=== PATIENT | female | born 1960 | race Caucasian/White ===

== ENCOUNTER → 2018-12-07 | Outpatient (CLI) | payer OTHER ==
[~2018-12-07] MED LIST: ACEBUTCAFT PO; ESTR.1TPBW TOP; IBUPROFEN200 MG PO; Kenalog-40 m40 MG/ML INJ; LAVAP17G PO; Synthroid25 MCG PO; VALACYCLOVIR1000 MG PO
[2018-12-09 15:18] LABS: HPV 16 Negative (Negative); HPV 18 Negative (Negative); HPV OTHER HR TYPES Negative (Negative)
== END ==
LOC: LAB SHORT 17:44 → LAB 17:44
PROVIDERS: Nurse Practitioner Women's Health
DX: Z12.72 Encounter for screening for malignant neoplasm of vagina (principal); Z91.89 Other specified personal risk factors, not elsewhere classified
CPT/HCPCS: 87624; G0123

== ENCOUNTER 2020-04-19 08:25 | Day surgery (SDC) | payer OTHER ==
[~2020-04-19] VITALS: Ht 165.1 cm; Wt 64.0 kg
--- NOTE | 2020-04-19 09:29 | NUR ---
04/19/20 0929 Gwen Thornton S PT VERBALIZES NO PAIN BUT IMPINGEMENT IN HER LEFT SHOULDER RATING A "2-3". PT. ALSO VERBALIZES THAT IT'S HARD TO OPEN HER MOUTH WIDE & INSTRUCTED HER ABOUT THE BITE BLOCK & WOULD TAKE IT OUT SOON POSSIBLE.
--- NOTE | 2020-04-19 11:49 | NUR ---
04/19/20 1149 Gwen Thornton PT. SUCTIONED NEEDED T.O. PROCEDURE. ON UPPER ENDO PT. WITH STRIDOR SOUNDS OFF & ON, JAW THRUST/CHIN LIFT PERFORMED. SATS REMAINED STABLE.
== END 2020-04-19 11:32 | disposition home or self-care (01) ==
LOC: ORSCSDS 08:25
DX: R13.10 Dysphagia, unspecified (principal); K21.9 Gastro-esophageal reflux disease without esophagitis; Z86.010 Personal history of colon polyps; K20.0 Eosinophilic esophagitis; D12.0 Benign neoplasm of cecum; D12.2 Benign neoplasm of ascending colon; K22.2 Esophageal obstruction; K64.1 Second degree hemorrhoids; Z12.11 Encounter for screening for malignant neoplasm of colon; E03.9 Hypothyroidism, unspecified; Z79.899 Other long term (current) drug therapy
CPT/HCPCS: 88305; C1726; J2405; J2704; J7120

== ENCOUNTER → 2023-04-09 | Outpatient (CLI) | payer OTHER ==
[2023-04-09 15:50] LABS: Free Thyroxine 0.94 ng/dL (0.70-1.60)
[2023-04-09 15:52] LABS: Thyroid Stimulating Hormone 1.94 uIU/mL (0.360-4.800)
[2023-04-11 16:40] LABS: TRIIODOTHYRONINE,TOTAL T3 TTL 73 ng/dL (80-200)
== END ==
LOC: LAB 13:56 → LAB SHORT 13:56
PROVIDERS: Internal Medicine
DX: E03.9 Hypothyroidism, unspecified (principal)
CPT/HCPCS: 84439; 84443; 84480

== ENCOUNTER 2024-05-26 10:56 | Day surgery (SDC) | payer MEDICARE, OTHER ==
[~2024-05-26] VITALS: Ht 165.1 cm; Wt 63.2 kg
[~2024-05-26 10:56] MED LIST changes: +ALLEGRA ALLERGY60 MG PO; -ESTR.1TPBW TOP; +Lactated Ringer's 1,000 ML IV ONE; +VIVELLE-DOT1 EA30; +propofoL 50 ML IV ONE
[2024-05-26] MEDS ORDERED: Lactated Ringer's 1,000 ML IV ONE (11:40)
[2024-05-26 13:24] VITALS: BP 106/61
== END 2024-05-26 13:20 | disposition home or self-care (01) ==
LOC: ORSCSDS 10:56
PROVIDERS: Specialist
PROC: 0DBK8ZX Excision of Ascending Colon, Via Natural or Artificial Opening Endoscopic, Diagnostic (ICD-10-PCS; principal; 2024-05-26 12:15)
PROC: 0D758ZZ Dilation of Esophagus, Via Natural or Artificial Opening Endoscopic (ICD-10-PCS; 2024-05-26 12:15)
PROC: 0DB58ZX Excision of Esophagus, Via Natural or Artificial Opening Endoscopic, Diagnostic (ICD-10-PCS; 2024-05-26 12:15)
DX: K20.0 Eosinophilic esophagitis (principal); Z12.11 Encounter for screening for malignant neoplasm of colon; Z86.0100 Personal history of colon polyps, unspecified; D12.2 Benign neoplasm of ascending colon; K22.2 Esophageal obstruction; K44.9 Diaphragmatic hernia without obstruction or gangrene; K64.8 Other hemorrhoids; Z79.899 Other long term (current) drug therapy
CPT/HCPCS: 88305; C1726; J2704; J7120

== ENCOUNTER → 2024-06-10 | Outpatient (CLI) | payer MEDICARE, OTHER ==
[~2024-06-10] MED LIST changes: -Lactated Ringer's 1,000 ML IV ONE; -propofoL 50 ML IV ONE
[2024-06-10 16:00] LABS: Hematocrit 45.5 % (33.0-51.0); Hemoglobin 14.9 g/dL (11.5-16.0); Mean Corpuscular HGB 30.1 pg (26.0-34.0); Mean Corpuscular HGB Conc 32.7 g/dL (31.5-36.5); Mean Corpuscular Volume 92 fL (80-100); Platelet Count 234 K/mm3 (150-400); RDW Standard Deviation 44.1 fL (35.1-46.3); Red Blood Cell Count 4.95 M/mm3 (3.80-5.20); White Blood Cell Count 4.75 K/mm3 (4.00-11.30)
[2024-06-10 17:06] LABS: Alanine Aminotransfer (ALT/SGP 53 U/L (12-78); Albumin, Blood 4.2 g/dL (3.4-5.0); Albumin/Globulin Ratio 1.4 (0.8-1.8); Alk Phos 64 U/L (50-136); Anion Gap 9 mmol/L (3-11); Aspartate Aminotrans (AST/SGOT 29 U/L (12-37); Bilirubin, Total 1.1 mg/dL (0.1-1.0); Blood Urea Nitrogen 8 mg/dL (8-24); Bun/Creatinine Ratio 12.4 (12.0-20.0); CHOL/HDL RATIO 3.1; CO2, Blood 28 mmol/L (21-32); Calcium, Blood 9.1 mg/dL (8.5-10.1); Chloride, Blood 106 mmol/L (98-108); Cholesterol 272 mg/dL (50-200); Creatinine, Blood 0.65 mg/dL (0.40-1.00); Free Thyroxine 1.01 ng/dL (0.70-1.60); Globulin, Blood 2.9 g/dL (2.2-4.0); Glomerular Filtration Rate 98 (60-); Glucose, Blood 98 mg/dL (70-99); HDL Cholesterol 89 mg/dL (>39); LDL/HDL RATIO 1.8; Low Density Lipoprotein Chol 160 mg/dL (0-110); Potassium, Blood 3.8 mmol/L (3.5-5.5); Sodium, Blood 139 mmol/L (136-145); Total Protein, Blood 7.1 g/dL (6.4-8.2); Triglycerides 117 mg/dL (30-160); Triiodothyronine, Free 2.84 pg/mL (2.18-3.98); Very Low Density Lipoprot Chol 23 mg/dL (6-32)
== END | disposition home or self-care (01) ==
LOC: LAB 10:05 → LAB SHORT 10:05
PROVIDERS: Internal Medicine
DX: Z00.00 Encounter for general adult medical examination without abnormal findings (principal); Z13.6 Encounter for screening for cardiovascular disorders; E03.9 Hypothyroidism, unspecified
CPT/HCPCS: 80053; 80061; 84439; 84443; 84481; 85027

== ENCOUNTER 2024-09-14 08:26 | Day surgery (SDC) | payer MEDICARE, OTHER ==
[~2024-09-14] VITALS: Ht 165.1 cm; Wt 66.6 kg
[~2024-09-14 08:26] MED LIST changes: +Lactated Ringer's 1,000 ML IV ONE; +propofoL 50 ML IV ONE
[2024-09-14] MEDS ORDERED: OMEP20ER (09:09)
[2024-09-14] MEDS ORDERED: MONT10T (09:09)
[2024-09-14] MEDS ORDERED: Lactated Ringer's 1,000 ML IV ONE (09:22)
[2024-09-14 10:35] VITALS: BP 118/62
== END 2024-09-14 10:40 | disposition home or self-care (01) ==
LOC: ORSCSDS 08:26
PROVIDERS: Specialist
PROC: 0DB58ZX Excision of Esophagus, Via Natural or Artificial Opening Endoscopic, Diagnostic (ICD-10-PCS; principal; 2024-09-14 09:45)
PROC: 0D758ZZ Dilation of Esophagus, Via Natural or Artificial Opening Endoscopic (ICD-10-PCS; principal; 2024-09-14 09:45)
DX: R13.10 Dysphagia, unspecified (principal); Z87.19 Personal history of other diseases of the digestive system; K22.2 Esophageal obstruction; K44.9 Diaphragmatic hernia without obstruction or gangrene; Z86.0100 Personal history of colon polyps, unspecified; Z79.899 Other long term (current) drug therapy
CPT/HCPCS: 88305; C1769; J2704; J7120